=== PATIENT | male | born 1990 | race African-American/Black ===

== ENCOUNTER 2018-02-13 11:51 | Emergency (ER) | payer SELFPAY ==
[~2018-02-13] VITALS: Ht 180.3 cm; Wt 118.0 kg
[2018-02-13 13:15] LABS: HEMATOCRIT 49.8 % (38.0-50.0); HEMOGLOBIN 17.2 G/DL (12.5-16.6); MCH 29.7 PG (29.0-34.0); MCHC 34.5 G/DL (30.0-36.0); MCV 85.9 FL (86-99); PLATELET COUNT 210 K/uL (156-360); RBC DIS.WIDTH-CV 12.2 % (11.8-14.6); WHITE BLOOD COUNT 8.3 K/uL (4.1-10.2)
[2018-02-13 13:20] LABS: CHLORIDE 105 mEq/L (99-109); POTASSIUM 4.6 mEq/L (3.7-5.4); SODIUM 139 mEq/L (136-147)
[2018-02-13 13:22] LABS: GLUCOSE 91 mg/dL (70-99)
[2018-02-13 13:25] LABS: CREATININE 1.4 mg/dL (0.6-1.3)
[2018-02-13 13:26] LABS: UREA NITROGEN (BUN) 11 mg/dL (9-23)
[2018-02-13 13:27] LABS: GFR ESTIMATE (CALCULATED) > 59 mL/min/ (58.99-99999)
[2018-02-13 13:32] LABS: APPEARANCE CLEAR ((CLEAR)); BILIRUBIN NEGATIVE; BLOOD NEGATIVE; COLOR COLORLESS ((YELLOW)); GLUCOSE (STRIP) NEGATIVE; KETONES NEGATIVE; LEUKOCYTES NEGATIVE; NITRITE NEGATIVE; PROTEIN (STRIP) NEGATIVE; SPECIFIC GRAVITY 1.006 (1.000-1.030); UCUL ADDED? NO; UROBILINOGEN 0.2 MG/DL (0.2-1.0)
[2018-02-13 13:33] LABS: TROP-I INTERPRETATION NEGATIVE; TROPONIN-I < 0.01 ng/mL (0.0-0.30)
[2018-02-13 15:32] LABS: ALBUMIN 4.9 g/dL (3.2-4.8)
[2018-02-13 15:35] LABS: TOTAL PROTEIN 8.3 g/dL (6.4-8.3)
[2018-02-13 15:37] LABS: TOTAL BILIRUBIN 0.7 mg/dL (0.0-1.0)
[2018-02-13 15:38] LABS: ALKALINE PHOSPHATASE 85 IU/L (3-129)
[2018-02-13 15:40] LABS: AST (GOT) 22 IU/L (2-34)
[2018-02-13 15:41] LABS: ALT (GPT) 22 IU/L (3-49); DIRECT BILIRUBIN 0.3 mg/dL (0.0-0.3)
[2018-02-13 16:33] LABS: TROP-I INTERPRETATION NEGATIVE; TROPONIN-I < 0.01 ng/mL (0.0-0.30)
[2018-02-13 17:10] VITALS: BP 143/87
== END 2018-02-13 17:00 | disposition home or self-care (01) ==
LOC: EME 11:51
PROVIDERS: Physician Assistant Medical
DX: R07.9 Chest pain, unspecified (principal); R10.9 Unspecified abdominal pain; I44.0 Atrioventricular block, first degree; R94.31 Abnormal electrocardiogram [ECG] [EKG]
CPT/HCPCS: 71046; 80048; 80076; 81003; 84484; 85027; 93005; 99281; 99284